=== PATIENT | female | born 1990 | race Caucasian/White ===

== ENCOUNTER 2022-03-05 12:32 | Outpatient (CLI) | payer BC ==
[2022-03-05] MEDS ORDERED: iohexoL 240 mgI/mL, 50 ML INFUS..BTL IV ONE (12:56)
== END 2022-03-05 20:32 | disposition home or self-care (01) ==
LOC: SRD 12:32
PROVIDERS: ATTEND Specialist
DX: N92.6 Irregular menstruation, unspecified (principal); Q96.9 Turner's syndrome, unspecified; E34.9 Endocrine disorder, unspecified; I15.2 Hypertension secondary to endocrine disorders
CPT/HCPCS: 74740; 58340; Q9966; C1751